=== PATIENT | male | born 1990 | race African-American/Black ===

== ENCOUNTER 2024-09-25 09:51 | Emergency (ER) | payer BC ==
[~2024-09-25] VITALS: Ht 182.9 cm; Wt 90.0 kg
[2024-09-25 09:54] VITALS: O2SAT 97
[2024-09-25] MEDS: PREDNISONE 20MG TABLET PO ONE (10:37)
[2024-09-25] MEDS: SODIUM CHLORIDE 0.9% 1,000 ML IV ONE ×2 (10:51)
[2024-09-25] MEDS: KETOROLAC 30MG/ML VIAL IV ONE (10:51)
[2024-09-25] MEDS ORDERED: P20 PO (10:53)
[2024-09-25 11:32] VITALS: BP 111/55; PULSE 80; RESP 18; TEMP 37.3; O2SAT 97
== END 2024-09-25 11:51 | disposition home or self-care (01) ==
LOC: ER 09:51
DX: J11.1 Influenza due to unidentified influenza virus with other respiratory manifestations (principal); Z88.0 Allergy status to penicillin
CPT/HCPCS: 99283; 96374; 71045; 96361; J1885; J7512; J7030